=== PATIENT | female | born 1965 | race Caucasian/White ===

== ENCOUNTER 2022-05-31 07:54 | Emergency (ER) | payer OTHER, SELFPAY ==
[2022-05-31 08:03] VITALS: BP 139/75; PULSE 79; RESP 20; TEMP 36.3; O2SAT 98; BMI 36.6
--- NOTE | 2022-05-31 09:05 | PC.NURSE ---
Patient discharged home with . Instymed prescription for Prednisone and Oxycodone provided to patient. Has injections scheduled for next week. Will follow up with PCP as needed or return if worsening symptoms.
--- NOTE | 2022-05-31 09:48 | ED_ITS ---
HPI - General Adult General Date Seen: 05/31/22 Chief complaint: Hip Injury/Pain Stated complaint: hip pain Time Seen by Provider: 05/31/22 08:05 Source: patient and family History of Present Illness HPI narrative: Patient is a 56-year-old woman who presents with right hip and back pain which has been worsening for the past 4-5 days. She says she has had problems with bilateral hip pain for a while now, had recently had x-rays that showed some degenerative changes, and has an appointment next Saturday with an orthopedic doctor in the [facility] for injections. However, this pain in the right side is new and acute, she says she has had pain around the right outer hip generally which now is been radiating into her right low back and more into her right outer thigh as well. She does not have any pain that radiates down the right leg. She has not had any numbness or weakness. She has some longstanding bladder issues, she was actually scheduled to go to an appointment for that this morning, but on wakening at 5:30 a.m. this morning she says she had such severe pain that she could barely get out of bed. As such, she ended up coming here rather than going to her appointment for her bladder. She has not had any acute bladder or bowel changes. Was able have a bowel movement this morning. She took some ibuprofen, and her pain is improved at this time. She still has pain with movement, trying to go from lying to sitting or sitting to standing is still painful. She feels better when at rest although the pain does not completely resolve. She has not had new symptoms such as fever. She denies injuries. Her says that he thought he might have to call the ambulance because she was barely able to brush her teeth, he did not know if he was going to be able to get her to the car, but after she had a bowel movement and the ibuprofen kicked in he was able to get her to the car. She seems significantly better now than she did earlier at home. Review of Systems Status of ROS: Reports: 10 or more systems reviewed and unremarkable except as noted in History and below [facility] PFS Social History Smoking Status: Former smoker Do you use any of these nicotine containing products: None Second hand tobacco smoke exposure: No How often do you have a drink containing alcohol: monthly or less How many standard drinks containing alcohol do you have on a typical day: 1 or 2 How often do you have six or more drinks on one occasion: Never AUDIT-C Alcohol total score: 1 Non-prescribed substance use: denies use service: No Exam Narrative: Exam Narrative: Vital signs as noted above. In general, an alert, well-appearing patient. Head: Normocephalic, atraumatic. Eyes: Pupils are equal reactive. Extraocular movements are full. Conjunctivae are normal. ENT: Mucous membranes are moist. Throat is normal. Neck: Supple without lymphadenopathy. Heart: Regular rate and rhythm. No murmur or rub. Lungs: Clear bilaterally. No increased work of breathing, crackles or wheezes. Abdomen: Soft and nontender. No organomegaly. Back: Mild tenderness of the lumbar musculature on the right. Extremities: Well perfused. No edema. No calf tenderness. Pulses intact. Full range of motion of the hip on the right. Nonpainful. She has mild diffuse tenderness surrounding the hip on the right, but no focal tenderness specifically over the greater trochanter or SI joint. Straight leg raise is negative. Neurologic: Patient is alert and oriented to person and place. Speech is fluent. Face is symmetric. Moves all extremities equally. Five of 5 strength bilaterally of the lower extremities. Sensation is intact to light touch. Affect: Normal. Skin: Warm and dry. Well perfused. Const: Vital Signs, click to edit/add: Vital Signs - 24 hr 05/31/22 08:03 Temperature 97.4 F L Pulse Rate [Femora l] 79 Respiratory Rate 20 Blood Pressure [Ri ght Upper Arm] 139/75 Pulse Oximetry 98 Oxygen Delivery Me thod Room Air Course Course Hospital Course: Patient wondered about imaging in the form of x-rays or CT scan. We discussed that plain x-rays would be of little use as a do not think in the absence of trauma that this is a problem with the bones of the spine. Likewise, CT scan is unlikely to give us much information on the discs in the back, and is not really the 1st test of choice. It is possible that this pain today represents an exacerbation of her underlying hip pathology, but also could be a new problem, potentially representing radiculopathy. If so, MRI would be the test of choice. Discussed that we would not typically do this immediately nor out of the ER. Discussed pain control in the ER, she declines needing that at this time. I do think putting her on a prednisone taper would be reasonable and she is comfortable with that. In terms of pain management at home, I have recommended baseline strategy of 400 mg of ibuprofen and 1000 mg of Tylenol 3 times daily with food. She would like to have something stronger just in case she runs into severe pain like she had earlier, although she says that she will only use it if absolutely necessary. I did review her in the prescription monitoring database, she has no prior prescriptions. I think it is most reasonable to have her get her injections next week as planned, give it a week or so, and see what she is left with in terms of symptoms. If she does not have any relief with those injections, it may be reasonable to pursue further evaluation for this new pain on the right in terms of an alternate explanation. She does not have any severe focal tenderness over the trochanteric bursa and I am less suspicious of bursitis as an etiology. She does not have any pain at all with range of motion of the hip, I do not think this represents a true arthritis, gout, septic ar thritis, etcetera. Return at any time to the ER for severe or worsening symptoms, new symptoms such as fever, weakness or numbness. Vital Signs Vital signs: Initial Vital Signs Temperature 97.4 F L 05/31/22 08:03 Temperature Source Temporal Artery Scan 05/31/22 08:03 Pulse Rate 79 05/31/22 08:03 Pulse Rhythm 05/31/22 08:03 Respiratory Rate 20 05/31/22 08:03 Blood Pressure 139/75 05/31/22 08:03 Blood Pressure Mean 96 05/31/22 08:03 Blood Pressure Position Sitting 05/31/22 08:03 Pulse Oximetry 98 05/31/22 08:03 Oxygen Delivery Method 05/31/22 08:03 Vital Signs Temperature 97.4 F L 05/31/22 08:03 Pulse Rate 79 05/31/22 08:03 Respiratory Rate 20 05/31/22 08:03 Blood Pressure 139/75 05/31/22 08:03 Pulse Oximetry 98 05/31/22 08:03 Oxygen Delivery Method 05/31/22 08:03 Temperature 97.4 F L 05/31/22 08:03 Pulse Rate 79 05/31/22 08:03 Respiratory Rate 20 05/31/22 08:03 Blood Pressure 139/75 05/31/22 08:03 Pulse Oximetry 98 05/31/22 08:03 Oxygen Delivery Method 05/31/22 08:03 Discharge Plan Discharge Clinical Impression: Pain in right hip Patient Disposition: Home, Self-Care Condition: Stable Instructions: Hip Pain (ED) Additional Instructions: Medications as prescribed. Injections next week as planned for your hips. Primary care followup if your symptoms do not improve on the right. If you have new or worsening symptoms such as fevers, weakness, numbness, severe uncontrolled pain, return at any time to the emergency department. Prednisone dosin tablets daily for 3 days, then 2 tablets daily for 3 days, then 1 tablet daily for 3 days Follow Up/Referrals: Minerva Cho PA-C [Referring] - [facility]
== END 2022-05-31 09:16 | disposition home or self-care (01) ==
LOC: ED 09:04
PROVIDERS: Emergency Provider Emergency Medicine; PCP Student in an Organized Health Care Education/Training Program
DX: M25.551 Pain in right hip (principal)
CPT/HCPCS: 99283; 99284